=== PATIENT | male | born 1960 | race Two or more races ===

== ENCOUNTER 2024-01-13 19:05 | Emergency (ER) | payer OTHER ==
[~2024-01-13] VITALS: Ht 172.7 cm; Wt 90.7 kg
[2024-01-13] MEDS ORDERED: TAMS0.4C (19:23)
[2024-01-13] MEDS ORDERED: ORAPRED ODT10 MG (19:23)
[2024-01-13] MEDS ORDERED: KETOROLAC TROMETHAMINE 30 MG VIAL IM STA (19:38)
[2024-01-13] MEDS ORDERED: ORPHENADRINE CITRATE 30 MG/ML AMPUL IM STA (19:39)
== END 2024-01-13 20:19 | disposition home or self-care (01) ==
LOC: ER 19:06
DX: M54.9 Dorsalgia, unspecified (principal); X58.XXXA Exposure to other specified factors, initial encounter; Y93.9 Activity, unspecified; Y92.9 Unspecified place or not applicable; Y99.9 Unspecified external cause status